=== PATIENT | male | born 1990 | race Caucasian/White ===

== ENCOUNTER 2016-11-15 06:43 | Emergency (ER) | payer OTHER ==
--- NOTE | 2016-11-15 07:26 | ER Document Report ---
ED General - General Mode of Arrival: Ambulatory Information source: Patient, Relative - spouse TRAVEL OUTSIDE OF THE [place] IN LAST 30 DAYS: No - HPI Onset: Yesterday - Refer Associated symptoms: Chest pain Exacerbated by: Movement, Deep breathing Similar symptoms previously: No <ANGELA BRITO - Last Filed: 11/15/16 08:00> <ASHLEIGHMANUEL - Last Filed: 11/15/16 08:55> - General Chief Complaint: Chest Pain Stated Complaint: CHEST PAIN/DIFFICULTY BREATHING Time Seen by Provider: 11/15/16 07:15 Notes: Patient is a 26-year-old male presents emergency department for chest and abdomen pain. Patient has anterior lateral chest pain which was onset yesterday and right upper quadrant abdominal and right lateral rib pain was onset this morning. Patient states he also has some pain in his neck. Patient' s pain is exacerbated with movement and deep breathing. Patient does not recall any injury or trauma to these areas. Patient does not recall doing any heavy lifting or exacerbation to cause strain to these areas. Patient has a history of anxiety and depression as well as chronic left shoulder pain. Patient had an MRI completed for his left shoulder on 11/12/2016. Patient denies any family history of coronary artery disease. Patient states he takes meloxicam, trazodone, and Viagra. Patient has no known drug allergies. (ANGELA BRITO) - Related Data Allergies/Adverse Reactions: No Known Allergies Allergy (Verified 11/09/12 20:52) Past Medical History - General Information source: Patient - Social History Smoking Status: Current Every Day Smoker Cigarette use (# per day): Yes - 5-6 Family History: None Patient has suicidal ideation: No Patient has homicidal ideation: No Musculoskeltal Medical History: Reports Other - chronic shoulder pain Psychiatric Medical History: Reports: Hx Anxiety, Hx Depression Surgical Hx: Negative - Immunizations Immunizations up to date: Yes Hx Diphtheria, Pertussis, Tetanus Vaccination: Yes <ANGELA BRITO - Last Filed: 11/15/16 08:00> Review of Systems - Review of Systems Constitutional: No symptoms reported EENT: No symptoms reported Cardiovascular: See HPI, Chest pain Respiratory: No symptoms reported Gastrointestinal: See HPI, Abdominal pain Genitourinary: No symptoms reported Male Genitourinary: No symptoms reported Musculoskeletal: See HPI Skin: No symptoms reported Hematologic/Lymphatic: No symptoms reported Neurological/Psychological: No symptoms reported -: Yes All other systems reviewed and negative <ANGELA BRITO - Last Filed: 11/15/16 08:00> Physical Exam - Vital signs Interpretation: Normal <ANGELA BRITO - Last Filed: 11/15/16 08:00> <MANUEL SOTELO - Last Filed: 11/15/16 08:55> - Vital signs Vitals: Temp Pulse Resp BP Pulse Ox 97.6 F 75 16 106/56 L 100 11/15/16 06:54 11/15/16 06:54 11/15/16 06:54 11/15/16 06:54 11/15/16 06:54 - Notes Notes: GENERAL: Alert, interacts well. No acute distress. HEAD: Normocephalic, atraumatic. EYES: Appear normal. Pupils equal, round, and reactive to light. ENT: Moist mucus membranes, tongue midline. NECK: Full range of motion. Supple. Trachea midline. LUNGS: Clear to auscultation bilaterally, no wheezes, rales, or rhonchi. No respiratory distress. Tenderness to palpation over the left pectoralis musculature, left ribs, right lateral ribs, and right anterior abdominal muscle wall. HEART: Regular rate and rhythm. No murmurs, gallops, or rubs. ABDOMEN: Soft, non-tender. Non-distended. Normal bowel sounds. EXTREMITIES: Moves all 4 extremities spontaneously. Normal strength. No edema. NEUROLOGICAL: Alert and oriented x3. Normal speech. No focal neurological deficits. GSC 15. PSYCH: Normal affect, normal mood. SKIN: Warm, dry, normal turgor. No rashes or lesions noted. (ANGELA BRITO) Course - Laboratory Result Diagrams: 11/15/16 07:40 11/15/16 07:40 <ANGELA BRITO - Last Filed: 11/15/16 08:00> - Laboratory Result Diagrams: 11/15/16 07:40 11/15/16 07:40 - Diagnostic Test Radiology reviewed: Image reviewed, Reports reviewed - X-ray is normal - EKG Interpretation by Ar EKG shows normal: Sinus rhythm, [place], Intervals, QRS Complexes. abnormal: ST-T Waves - Lateral ST elevation suggests pericarditis Rate: Normal - 79 Rhythm: NSR When compared to previous EKG there are: Previous EKG unavailable <MANUEL SOTELO - Last Filed: 11/15/16 08:55> - Vital Signs Vital signs: Temp Pulse Resp BP Pulse Ox 97.6 F 75 16 106/56 L 100 11/15/16 06:54 11/15/16 06:54 11/15/16 07:32 11/15/16 06:54 11/15/16 06:54 - Laboratory Laboratory results interpreted by me: 11/15/16 07:40 Seg Neutrophils % 81.5 H Lymphocytes % 9.1 L Discharge <ANGELA BRITO - Last Filed: 11/15/16 08:00> <MANUEL SOTELO - Last Filed: 11/15/16 08:55> - Discharge Clinical Impression: Abdominal muscle pain Chest wall muscle strain Qualifiers: Encounter type: initial encounter Qualified Code(s): S29.011A - Strain of muscle and tendon of front wall of thorax, initial encounter Condition: Stable Disposition: HOME, SELF-CARE Additional Instructions: Chest Wall Pain Your chest pain has been diagnosed as coming from the chest wall. This is often caused by straining the muscles or joints in the chest during physical activity, direct trauma, coughing, or vigorous vomiting. Occasionally, no cause can be found. Rest from strenuous physical activity. This kind of chest pain is usually made worse by movement of the chest. Depending on the symptoms, we may prescribe medicine for pain, muscle relaxation, and antiinflammatory effects. If the pain is new, and seems to be due to muscle strain, cold packs can help. Otherwise, apply gentle warmth to the painful area for 15 minutes every hour or two. You should contact the doctor immediately if things change. Further evaluation is needed if you develop a fever or cough, if the nature of the pain changes, or if you become short of breath. ADD TYLENOL TO THE MELOXICAM FOR PAIN. REST THE MUSCLES IN YOUR ARMS, CHEST AND ABDOMEN. SOMETIMES MOIST HEAT HELPS. FOLLOW UP WITH A LOCAL MEDICAL DOCTOR IF NOT IMPROVING. RETURN TO THE EMERGENCY ROOM IF ANY NEW OR WORSENING SYMPTOMS. Scribe Attestation: 11/15/16 08:55 I personally performed the services described in the documentation, reviewed and edited the documentation which was dictated to the scribe in my presence, and it accurately records my words and actions. (MANUEL SOTELO) Scribe Documentation - Scribe Written by Scribe:: Michelle Evangelista, 11/15/2016 8:00 acting as scribe for :: Ashleigh <ANGELA BRITO - Last Filed: 11/15/16 08:00>
[2016-11-15 07:51] LABS: ABSOLUTE EOSINOPHILS # (AUTO) 0.1 10^3/uL (0.0-0.6); ABSOLUTE LYMPHOCYTES (AUTO) 0.9 10^3/uL (0.5-4.7); ABSOLUTE MONOCYTES (AUTO) 0.7 10^3/uL (0.1-1.4); ABSOLUTE NEUT (AUTO) 7.8 10^3/uL (1.7-8.2); BASOPHILS % (AUTO) 0.4 % (0-2); EOSINOPHILS % (AUTO) 1.2 % (0-6); HEMATOCRIT 44.2 % (37.9-51.0); HEMOGLOBIN 14.7 g/dL (13.5-17.0); HGB HCT DIFFERENCE -0.1; LYMPHOCYTES % (AUTO) 9.1 % (13-45); MEAN CORPUSCULAR HEMOGLOBIN 29.7 pg (27.0-33.4); MEAN CORPUSCULAR HGB CONC 33.2 g/dL (32.0-36.0); MEAN CORPUSCULAR VOLUME 90 fl (80-97); MONOCYTES % (AUTO) 7.8 % (3-13); RED BLOOD COUNT 4.94 10^6/uL (4.35-5.55); RED CELL DISTRIBUTION WIDTH 13.3 % (11.5-14.0); SEGMENTED NEUTROPHILS % (AUTO) 81.5 % (42-78); WHITE BLOOD COUNT 9.6 10^3/uL (4.0-10.5)
--- NOTE | 2016-11-15 07:55 | EKG REPORT ---
SEVERITY:- ABNORMAL ECG - SINUS RHYTHM ST ELEVATION SUGGESTS NORMAL VARIANT : Confirmed by: Yon Hummel MD 15-Nov-2016 07:54:28
--- NOTE | 2016-11-15 08:01 | RADIOLOGY REPORT (SQ) ---
EXAM DESCRIPTION: CHEST PA/LAT COMPLETED DATE/TIME: 11/15/2016 7:52 am REASON FOR STUDY: chest pain COMPARISON: None. EXAM PARAMETERS: NUMBER OF VIEWS: two views TECHNIQUE: Digital Frontal and Lateral radiographic views of the chest acquired. RADIATION DOSE: NA LIMITATIONS: none FINDINGS: LUNGS AND PLEURA: No opacities, masses or pneumothorax. No pleural effusion. MEDIASTINUM AND HILAR STRUCTURES: No masses or contour abnormalities. HEART AND VASCULAR STRUCTURES: Heart normal size. No evidence for failure. BONES: No acute findings. HARDWARE: None in the chest. OTHER: No other significant finding. IMPRESSION: NO SIGNIFICANT RADIOGRAPHIC FINDING IN THE CHEST. TECHNICAL DOCUMENTATION: JOB ID: [id number] [employer]- All Rights Reserved
[2016-11-15 08:10] LABS: ALANINE AMINOTRANSFERASE 33 U/L (21-72); ALBUMIN 3.7 g/dL (3.5-5.0); ALKALINE PHOSPHATASE 50 U/L (38-126); ANION GAP 9 (5-19); ASPARTATE AMINO TRANSFERASE 17 U/L (17-59); BILIRUBIN,DIRECT 0.2 mg/dL (0.0-0.4); BILIRUBIN,TOTAL 0.7 mg/dL (0.2-1.3); BLOOD UREA NITROGEN 14 mg/dL (7-20); CALCIUM 8.9 mg/dL (8.4-10.2); CARBON DIOXIDE 27 mmol/L (22-30); CHLORIDE 105 mmol/L (98-107); CREATINE KINASE 65 U/L (55-170); CREATININE RESULT 0.93 mg/dL (0.52-1.25); GLUCOSE 92 mg/dL (75-110); POTASSIUM 4.3 mmol/L (3.6-5.0); SODIUM 140.9 mmol/L (137-145); TOTAL PROTEIN 6.3 g/dL (6.3-8.2)
[2016-11-15 09:19] VITALS: BP 109/69
== END 2016-11-15 09:19 | disposition home or self-care (01) ==
LOC: ER 06:43
DX: S29.011A Strain of muscle and tendon of front wall of thorax, initial encounter (principal); X58.XXXA Exposure to other specified factors, initial encounter; R10.11 Right upper quadrant pain; R07.81 Pleurodynia; M54.2 Cervicalgia; R94.31 Abnormal electrocardiogram [ECG] [EKG]; F41.9 Anxiety disorder, unspecified; F32.9 Major depressive disorder, single episode, unspecified; M25.512 Pain in left shoulder; G89.29 Other chronic pain; F17.210 Nicotine dependence, cigarettes, uncomplicated; Z79.899 Other long term (current) drug therapy
CPT/HCPCS: 36415; 71020; 80053; 82550; 85025; 93005; 93010; 99285